=== PATIENT | male | born 1965 | race African-American/Black ===

== ENCOUNTER 2020-02-19 19:56 | Emergency (ER) | payer BC ==
--- NOTE | 2020-02-19 20:39 | ER Document Report ---
ED Medical Screen (RME) - General Chief Complaint: Back Pain Stated Complaint: BACK PAIN Time Seen by Provider: 02/19/20 20:30 Mode of Arrival: Ambulatory Information source: Patient Notes: 54-year-old male presented to ED for complaint of back pain. He states he lifts a lot of heavy boxes at work and he was working all day did not feel anything until about 6:30 at night and then he felt a lot worse. He states he took Tylenol went straight nothing with helped woke up this morning the pain was worse. States he took off today and his pain is been the same all day. He states the pain did not come get any better he decided to come to the emergency room. He states he has no past medical history of anything except for a fractured neck with a fusion of the neck. 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 He states smokes 1/2 pack a day drinks socially and does not use any illicit drugs. His blood pressure was triple over triples in the triage area so I redid it and it is 186/129. We will get blood and urine and have him seen by 1 of the providers in the back. I have greeted and performed a rapid initial assessment of this patient. A comprehensive ED assessment and evaluation of the patient, analysis of test results and completion of medical decision making process will be conducted by an additional ED providers. - Related Data Allergies/Adverse Reactions: Penicillins Allergy (Verified 02/19/20 20:34) Physical Exam - Vital signs Vitals: Temp Pulse Resp BP Pulse Ox 98.6 F 78 18 178/98 H 98 02/19/20 20:20 02/19/20 20:20 02/19/20 20:20 02/19/20 20:20 02/19/20 20:20 Course - Vital Signs Vital signs: Temp Pulse Resp BP Pulse Ox 98.6 F 78 18 178/98 H 98 02/19/20 20:20 02/19/20 20:20 02/19/20 20:20 02/19/20 20:20 02/19/20 20:20
[2020-02-19 21:20] LABS: ABSOLUTE BASOPHILS # (AUTO) 0.1 10^3/uL (0.0-0.2); ABSOLUTE EOSINOPHILS # (AUTO) 0.2 10^3/uL (0.0-0.6); ABSOLUTE LYMPHOCYTES (AUTO) 3.6 10^3/uL (0.5-4.7); ABSOLUTE MONOCYTES (AUTO) 0.7 10^3/uL (0.1-1.4); ABSOLUTE NEUT (AUTO) 3.5 10^3/uL (1.7-8.2); BASOPHILS % (AUTO) 0.9 % (0-2); EOSINOPHILS % (AUTO) 2.3 % (0-6); HEMATOCRIT 50.2 % (37.9-51.0); HEMOGLOBIN 17.8 g/dL (13.5-17.0); LYMPHOCYTES % (AUTO) 44.8 % (13-45); MEAN CORPUSCULAR HEMOGLOBIN 31.1 pg (27.0-33.4); MEAN CORPUSCULAR HGB CONC 35.4 g/dL (32.0-36.0); MEAN CORPUSCULAR VOLUME 88 fl (80-97); MONOCYTES % (AUTO) 8.4 % (3-13); PLATELET COUNT 215 10^3/uL (150-450); RED BLOOD COUNT 5.71 10^6/uL (4.35-5.55); RED CELL DISTRIBUTION WIDTH 14.2 % (11.5-14.0); SEGMENTED NEUTROPHILS % (AUTO) 43.6 % (42-78); TOTAL CELLS COUNTED % (AUTO) 100 %; WHITE BLOOD COUNT 8.1 10^3/uL (4.0-10.5)
[2020-02-19 21:22] LABS: ALBUMIN 4.3 g/dL (3.5-5.0); ALKALINE PHOSPHATASE 100 U/L (38-126); ANION GAP 8 (5-19); ASPARTATE AMINO TRANSFERASE 23 U/L (17-59); BILIRUBIN,DIRECT 0.3 mg/dL (0.0-0.4); BILIRUBIN,TOTAL 0.6 mg/dL (0.2-1.3); BLOOD UREA NITROGEN 16 mg/dL (7-20); CALCIUM 9.5 mg/dL (8.4-10.2); CARBON DIOXIDE 27 mmol/L (22-30); CHLORIDE 105 mmol/L (98-107); GLUCOSE 105 mg/dL (75-110); POTASSIUM 4.1 mmol/L (3.6-5.0); TOTAL PROTEIN 7.6 g/dL (6.3-8.2)
[2020-02-19 21:37] VITALS: BP 182/112
[2020-02-19] MEDS ORDERED: HYDROCODONE/ACETAMINOPHEN 5-325 MG (6 TAB/ER DISP) PO PRN (21:41)
[2020-02-19 21:44] LABS: APPEARANCE,URINE CLEAR; BILIRUBIN,URINE NEGATIVE (NEGATIVE); CALCIUM OXALATE CRYSTALS,URINE FEW /HPF; COLOR,URINE YELLOW; GLUCOSE, URINE NEGATIVE (NEGATIVE); KETONES,URINE NEGATIVE (NEGATIVE); LEUKOCYTE ESTERASE,URINE SMALL (NEGATIVE); NITRITE,URINE NEGATIVE (NEGATIVE); PROTEIN,URINE 100 mg/dL (NEGATIVE); URINE SPECIFIC GRAVITY 1.025
--- NOTE | 2020-02-19 21:45 | ER Document Report ---
ED Neck/Back Problem - General Chief Complaint: Back Pain Stated Complaint: BACK PAIN Time Seen by Provider: 02/19/20 20:30 Primary Care Provider: [facility] [Provider Group] - Follow up in 1 week DEEPTHI HEMPHILL MD [COMMUNITY BASED STAFF] - Follow up in 1 week Mode of Arrival: Ambulatory Notes: Patient is a 54-year-old male who comes emergency department chief complaint of back pain. Pain is in the left lower back and radiates into the left buttock. Patient states that for his job he lifts a lot of heavy boxes and he was working all day yesterday, he states that after the day he felt some mild soreness in the back but then as the evening progressed he started feeling more soreness, tightness, and sharp pains. He states that he took Tylenol and this did not help him at all. He states he took the day off today and has been sore and having intermittent pains throughout the day. Patient denies focal numbness or weakness, incontinence, fever, history of IV drug abuse, or any surgeries on his back. Patient reports a history of hypertension and states he has been told he should be on blood pressure medication, he smokes, drinks occasionally, denies any other medical history. - Related Data Allergies/Adverse Reactions: Penicillins Allergy (Verified 02/19/20 20:34) Past Medical History - General Information source: Patient - Social History Smoking Status: Current Every Day Smoker Frequency of alcohol use: None Drug Abuse: None Lives with: Family Family History: Reviewed & Not Pertinent - Past Medical History Cardiac Medical History: Reports: Hx Hypertension - Immunizations Hx Diphtheria, Pertussis, Tetanus Vaccination: Yes Review of Systems - Review of Systems Constitutional: No symptoms reported EENT: No symptoms reported Cardiovascular: No symptoms reported Respiratory: No symptoms reported Gastrointestinal: No symptoms reported Genitourinary: No symptoms reported Male Genitourinary: No symptoms reported Musculoskeletal: See HPI Skin: No symptoms reported Hematologic/Lymphatic: No symptoms reported Neurological/Psychological: No symptoms reported Physical Exam - Vital signs Vitals: Temp Pulse Resp BP Pulse Ox 98.6 F 78 18 178/98 H 98 02/19/20 20:20 02/19/20 20:20 02/19/20 20:20 02/19/20 20:20 02/19/20 20:20 - Notes Notes: GENERAL: Patient alert, talkative, well-appearing. He does stand and then move with some stiffness and pain but otherwise no signs of distress HEAD: Normocephalic, atraumatic. EYES: Pupils equal, round, and reactive to light. Extraocular movements intact. ENT: Oral mucosa moist, tongue midline. Oropharynx unremarkable. Airway patent. NECK: Full range of motion. Supple. Trachea midline. No lymphadenopathy. LUNGS: Clear to auscultation bilaterally, no wheezes, rales, or rhonchi. No respiratory distress. Non-tender chest wall. HEART: Regular rate and rhythm. No murmur ABDOMEN: Soft, non-tender. Non-distended. EXTREMITIES: There is specific spasm palpated in the left lower lumbar region and tenderness along the left lower lumbar region in general. No midline tenderness, no saddle anesthesia, no signs of trauma. Normal upper and lower extremity range of motion, normal strength, normal distal neurovascular exam. Patient ambulates with mild discomfort but is able to do so without difficulty. BACK: no cervical, thoracic, lumbar midline tenderness. No saddle anesthesia, normal distal neurovascular exam. Moves all extremities in full range of motion. NEUROLOGICAL: Alert and oriented x3. Normal speech. Cranial nerves II through XI I grossly intact. Strength 5/5 in all extremities. PSYCH: Normal affect, normal mood. SKIN: Warm, dry, normal turgor. No rashes or lesions noted. Course - Re-evaluation Re-evalutation: Patient was reported musculoskeletal strain, no trauma, no neurological deficits reported, no abnormalities noted on exam, physical exam is very suggestive of musculoskeletal source. CBC and chemistry from triage reviewed and unremarkable. Patient has not urinated yet but he is requesting to go home. Very low suspicion of kidney stone, aortic dissection, spinal cord compression/infection, or acute abdomen based on his evaluation and easily reproducible symptoms. Patient is requesting treatment for his blood pressure and for his back. Patient has no headache or chest pain. He was provided with work release, provided with medications, provided with primary care follow-up. Discussed return precautions in detail. Patient states appreciation and agreement. Stable and well-appearing at time of discharge. Addendum: Urine was obtained at patient discharge apparently and lab ran it despite my family service counselor labs. Nonspecific findings. - Vital Signs Vital signs: Temp Pulse Resp BP Pulse Ox 98.2 F 66 16 182/112 H 100 02/19/20 21:36 02/19/20 21:36 02/19/20 21:36 02/19/20 21:36 02/19/20 21:36 - Laboratory Result Diagrams: 02/19/20 21:00 02/19/20 21:00 Laboratory results interpreted by me: 02/19/20 02/19/20 21:00 21:05 RBC 5.71 H Hgb 17.8 H RDW 14.2 H Urine Protein 100 H Urine Urobilinogen 2.0 H Ur Leukocyte Esterase SMALL H Discharge - Discharge Clinical Impression: Muscle strain, Essential hypertension Lower back pain Qualifiers: Chronicity: acute Back pain laterality: left Sciatica presence: without sciatica Qualified Code(s): M54.5 - Low back pain Condition: Stable Disposition: HOME, SELF-CARE Additional Instructions: Your evaluation is consistent with lower back strain and muscle spasm. Apply heat to the area, take the Robaxin muscle relaxer as prescribed, you can take [id number] anti-inflammatory such as naproxen or ibuprofen, rest. Avoid lifting or twisting. Symptoms should gradually resolve. Your blood pressure is very elevated today. Because of your repeated elevated blood pressures we have started you on a blood pressure medication, please take this daily as prescribed, please follow-up closely with the primary care referral to have this rechecked and adjusted more. Come back if you worsen including severe headache, chest pain, vomiting, fever, numbness, or any other concerning or worsening symptoms. Prescriptions: Amlodipine Besylate [Norvasc 5 mg Tablet] 5 mg PO DAILY #30 tablet Methocarbamol [Robaxin-750] 750 mg PO QID PRN #20 tablet PRN Reason: Forms: Return to Work Referrals: [facility] [Provider Group] - Follow up in 1 week DEEPTHI HEMPHILL MD [COMMUNITY BASED STAFF] - Follow up in 1 week
[2020-02-19 21:54] LABS: URINE AMPHETAMINES SCREEN NEGATIVE; URINE BARBITURATES SCREEN NEGATIVE; URINE BENZODIAZEPINES SCREEN NEGATIVE; URINE COCAINE SCREEN NEGATIVE; URINE MARIJUANA (THC) SCREEN NEGATIVE; URINE METHADONE SCREEN NEGATIVE; URINE PHENCYCLIDINE SCREEN NEGATIVE
== END 2020-02-19 21:53 | disposition home or self-care (01) ==
LOC: ER 19:56
DX: S39.012A Strain of muscle, fascia and tendon of lower back, initial encounter (principal); I10 Essential (primary) hypertension; M54.9 Dorsalgia, unspecified; X50.0XXA Overexertion from strenuous movement or load, initial encounter; F17.200 Nicotine dependence, unspecified, uncomplicated; Z88.0 Allergy status to penicillin
CPT/HCPCS: 36415; 80053; 80307; 81001; 83690; 85025; 99284